=== PATIENT | female | born 1990 | race Caucasian/White ===

== ENCOUNTER 2016-10-08 10:51 | Emergency (ER) | payer MEDICAID, OTHER ==
[2016-10-08 11:03] VITALS: BP 111/84
[2016-10-08] MEDS ORDERED: Lidocaine 1% 50 ML MDV INJECT ONE (11:28)
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
[2016-10-08] MEDS ORDERED: Cephalexin 500 MG Cap PO ONE (11:47)
[2016-10-08] MEDS ORDERED: Diphtheria,Pertussis(Acell),Tetanus Vaccine 0.5 ML SDV inactive IM ONE (12:07)
--- NOTE | 2016-10-08 13:22 | CR ---
Left fourth finger: Four views of the left fourth finger were obtained. Joint spaces are preserved. No fracture, dislocation or other bony abnormality is seen. No opaque foreign object is seen. Impression: 1. No abnormality is identified on left fourth finger study. Diagnostic code #1
== END 2016-10-08 12:30 | disposition home or self-care (01) ==
LOC: JD.ED 10:51
DX: S61.215A Laceration without foreign body of left ring finger without damage to nail, initial encounter (principal); W26.0XXA Contact with knife, initial encounter; F17.210 Nicotine dependence, cigarettes, uncomplicated; J45.909 Unspecified asthma, uncomplicated; Z88.8 Allergy status to other drugs, medicaments and biological substances; Z91.040 Latex allergy status; Z23 Encounter for immunization
CPT/HCPCS: 12001; 73140; 90471; 99284; A9270; 90715; 99283